=== PATIENT | female | born 1970 ===

== ENCOUNTER 2024-06-30 05:37 | Day surgery (SDC) | payer OTHER ==
[2024-06-30] MEDS ORDERED: CEFAZOLIN SODIUM 1,000 MG VIAL ONE (06:37)
[2024-06-30] MEDS ORDERED: POVIDONE-IODINE 118 ML BOTT TOP ONE (07:04)
[2024-06-30] MEDS ORDERED: BUPIVACAINE HCL/MPF 0.5% 30ML VIAL ONE (07:04)
[2024-06-30] MEDS ORDERED: IBU800 MG PO (08:31)
[2024-06-30] MEDS ORDERED: NEURONTIN300 MG PO (08:31)
[2024-06-30] MEDS ORDERED: ONDANSETRON HCL 2 MG/ML VIAL ONE (09:10)
== END 2024-06-30 10:55 | disposition home or self-care (01) ==
LOC: CIR.AMB 05:37
PROVIDERS: ATTEND Obstetrics & Gynecology Gynecology
DX: D07.1 Carcinoma in situ of vulva (principal); N95.0 Postmenopausal bleeding; J45.909 Unspecified asthma, uncomplicated